=== PATIENT | female | born 1995 | race American Indian/Alaskan Native ===

== ENCOUNTER 2021-02-04 11:15 | Outpatient (CLI) | payer OTHER ==
--- NOTE | 2021-02-04 13:45 | XRay Report ---
BILATERAL KNEES 3 VIEWS INDICATION: DEGERATIVE ARTHITIS. COMPARISON: None. IMPRESSION: No acute osseous or soft tissue abnormality. No significant DJD. LUMBOSACRAL SPINE 3 VIEWS INDICATION: DEGERATIVE ARTHITIS. COMPARISON: None. IMPRESSION: Normal alignment. No significant discogenic DJD or facet arthropathy. No acute osseous or soft tissue abnormality. Signer Name: Myron Nix Jr, MD Signed: 02/04/2021 1:41 PM Workstation Name: [id number]
== END 2021-02-04 11:16 | disposition home or self-care (01) ==
LOC: XRAY 11:15
PROVIDERS: ATTEND Internal Medicine
DX: M17.0 Bilateral primary osteoarthritis of knee (principal); M47.817 Spondylosis without myelopathy or radiculopathy, lumbosacral region
CPT/HCPCS: 72100